=== PATIENT | female | born 2000 | race Two or more races ===

== ENCOUNTER 2024-04-28 00:32 | Emergency (ER) | payer MEDICAID ==
[~2024-04-28] VITALS: Ht 172.7 cm; Wt 99.8 kg
[2024-04-28 00:55] VITALS: BP 134/87; TEMP 98.5; O2SAT 99
--- NOTE | 2024-04-28 00:55 | NUR ---
bibself co seeking test
--- NOTE | 2024-04-28 01:03 | NUR ---
Urine sent to lab
[2024-04-28 01:22] LABS: PREGNANCY TEST URINE QUAL NEGATIVE (NEGATIVE)
[2024-04-28 01:23] LABS: APPEARANCE,URINE CLEAR (CLEAR); BILIRUBIN,URINE NEGATIVE (NEGATIVE); BLOOD, URINE NEGATIVE Ery/uL (NEGATIVE); COLOR,URINE DARK YELLOW (YELLOW); KETONES,URINE NEGATIVE (NEGATIVE); LEUKOCYTE ESTERASE ,URINE NEGATIVE (NEGATIVE); NITRITE, URINE NEGATIVE (NEGATIVE); PROTEIN,URINE NEGATIVE (NEGATIVE); UGLUCOSE NEGATIVE (NEGATIVE); UROBILINOGEN,URINE 0.2 EU/dL (0.2)
--- NOTE | 2024-04-28 01:48 | NUR ---
Patient discharged to home in stable condition. Written and verbal after care instructions given. Patient verbalizes understanding of instruction.
== END 2024-04-28 01:49 | disposition home or self-care (01) ==
LOC: ER 00:33
DX: N91.2 Amenorrhea, unspecified (principal)
CPT/HCPCS: 84703-TC